=== PATIENT | male | born 1965 | race Caucasian/White ===

== ENCOUNTER 2020-08-07 13:46 | Emergency (ER) | payer OTHER, SELFPAY ==
--- NOTE | 2020-08-07 13:52 | ED.EXTPRO ---
HPI - Extremity Problem General Chief complaint: Extremity Injury, Lower Stated complaint: left foot pain Time Seen by Provider: 08/07/20 14:00 Source: patient and RN notes reviewed Mode of arrival: ambulatory Limitations: no limitations History of Present Illness HPI Narrative: 54-year-old male presents with concern for possible gout. Reports history of gout. Reports pain, redness, warmth for 1 week at the base of the first digit of the left foot. Denies intervention. Denies malaise, fever, chills, body aches. Denies any open wounds, sores. Denies injury. MD Complaint: extremity pain Related Data Home Medications Medication Instructions Recorded Confirmed alprazolam [Xanax] 0.5 mg PO DAILY 08/07/20 08/07/20 aspirin [Aspir-81] 81 mg PO DAILY 08/07/20 08/07/20 clopidogrel [Plavix] 75 mg PO DAILY 08/07/20 08/07/20 melatonin 3 mg PO HS 08/07/20 08/07/20 metoprolol succinate [Toprol XL] 12.5 mg PO BID 08/07/20 08/07/20 sacubitril-valsartan [Entresto] 2 tablet PO BID 08/07/20 08/07/20 torsemide 20 mg PO DAILY 08/07/20 08/07/20 Allergies Allergy/AdvReac Type Severity Reaction Status Date / Time cefprozil Allergy Mild HIVES Verified 08/07/20 14:02 Sulfa (Sulfonamide Allergy Mild DIZZINESS Verified 08/07/20 14:02 Antibiotics) AND SOB carvedilol Allergy Unknown BLOATING/CO Verified 08/07/20 14:02 NSTIPATION minocycline Allergy Unknown HIVES, Verified 08/07/20 14:02 ITCHING sulfamethoxazole Allergy Unknown DIZZINESS Verified 08/07/20 14:02 AND SOB trimethoprim Allergy Unknown DIZZINESS Verified 08/07/20 14:02 AND SOB AMITRIPTYLINE HCL Allergy Unknown Uncoded 08/07/20 14:02 STATENS AdvReac Unknown UNKNOWN Uncoded 08/07/20 14:02 Review of Systems Review of Systems: Narrative: CONSTITUTIONAL: Denies malaise, chills, sweats, or fever. CARDIOVASCULAR: Denies chest pain, palpitations, or edema. RESPIRATORY: Denies cough or dyspnea. SKIN: Denies abrasions, lacerations MUSCULOSKELETAL: Reports pain, redness, and warmth at the base of the first digit of the left foot NEUROLOGIC: Denies numbness, weakness All systems reviewed & are unremarkable except as noted in HPI and below PMFSH Social History Social History Gender identity (if verbalized by the patient): Male Comments At time of signature, agree with nursing past medical, surgical, social and family history. There is no relevant family history pertinent to the presenting complaint Exam Narrative: Exam Narrative: GENERAL: Well-appearing, well-nourished, and in no acute distress. HEAD: Normocephalic, atraumatic. EYES: PERRLA, conjunctivae clear NECK: Supple. CHEST: Speaks in full sentences. No respiratory distress. HEART: Regular rate and rhythm. Normal and equal peripheral pulses. EXTREMITIES: Left foot and digits have normal strength and sensation, normal range of motion. No edema or ecchymosis. Base of the first digit of the left foot is erythematous, warm, tender without induration. 5/5 strength with digit flexion and extension. Normal sensation with sensitivity to light touch and pain. No point tenderness. No open wounds, no skin tenting, no devitalized tissue or atrophy, no trophic changes, no obvious deformity, alignment normal, nearby joints and structures intact. Distal pulses palpable and equal bilaterally, skin warm, dry, pink. Capillary refill less than 3 seconds. SKIN: Warm, dry, no rash. NEURO: Alert and oriented x3. PSYCH: Normal mood and affect Course Course Emergency Course: Patient is aware of diagnosis, understands and agrees to treatment plan. Anticipatory guidance given. Patient agrees to follow-up as directed and is aware of reasons to seek care at the emergency department. Portions of this record may have been created with voice recognition software Vital Signs Vital signs: Vital Signs Temperature 97.9 F 08/07/20 14:05 Pulse Rate 90 08/07/20 14:05 Respiratory Rate 16 08/07/20 14:05 Blood Pressure 109/76
[2020-08-07 14:05] VITALS: BP 109/76; PULSE 90; RESP 16; TEMP 36.6; O2SAT 98
== END 2020-08-07 14:15 | disposition home or self-care (01) ==
PROVIDERS: Emergency Provider Nurse Practitioner; PCP Family Medicine
DX: M10.9 Gout, unspecified (principal); Z79.82 Long term (current) use of aspirin; I10 Essential (primary) hypertension; I25.2 Old myocardial infarction; Z95.5 Presence of coronary angioplasty implant and graft; G47.33 Obstructive sleep apnea (adult) (pediatric); F41.9 Anxiety disorder, unspecified
CPT/HCPCS: 99213; G0463